=== PATIENT | male | born 1985 | race Hispanic/Latino ===

== ENCOUNTER → 2023-09-28 15:32 | Outpatient (CLI) | payer OTHER, MEDICAID, SELFPAY ==
--- NOTE | 2023-09-28 15:36 | DI.RAD.S_ITS ---
PROCEDURE: XR KNEE RT 3V INDICATIONS: right knee pain after fall TECHNIQUE: 3 views of the knee were acquired. COMPARISON: [facility], CR, XR ELBOW RT MIN 3V, 09/28/2023, 15:36. FINDINGS: Bones: No fractures or dislocations. No suspicious bony lesions. Soft tissues: No joint effusion. No suspicious soft tissue calcifications. IMPRESSION: No acute bony abnormality or significant effusion. Dictated by: Asa Allen M.D. on 09/28/2023 at 15:11 Approved by: Asa Allen M.D. on 09/28/2023 at 15:12
--- NOTE | 2023-09-28 15:36 | DI.RAD.S_ITS ---
PROCEDURE: XR ELBOW RT MIN 3V INDICATIONS: right elbow pain after fall, dislocation TECHNIQUE: 3 views of the elbow were acquired. COMPARISON: [facility], CR, XR KNEE RT 3V, 09/28/2023, 15:36. FINDINGS: Bones: No fractures or dislocations. No suspicious bony lesions. There is a fragmented enthesophyte along the posterior aspect of the olecranon. Soft tissues: Soft tissue swelling is seen. No significant elbow joint effusion. No suspicious soft tissue calcifications. IMPRESSION: No acute bony abnormality is seen. Soft tissue swelling is seen, without a significant elbow joint effusion. A fragmented enthesophyte is seen along the posterior aspect of the olecranon. Dictated by: Asa Allen M.D. on 09/28/2023 at 15:12 Approved by: Asa Allen M.D. on 09/28/2023 at 15:13
== END ==
LOC: RAD 15:35
PROVIDERS: Family Provider Specialist; PCP Student in an Organized Health Care Education/Training Program; Referring Provider Physician Assistant; Visit Provider Physician Assistant
DX: M25.521 Pain in right elbow (principal); M79.89 Other specified soft tissue disorders; M25.561 Pain in right knee
CPT/HCPCS: 73080; 73562

== ENCOUNTER → 2023-10-15 07:38 | Outpatient (CLI) | payer OTHER, MEDICAID, SELFPAY ==
--- NOTE | 2023-10-15 07:40 | DI.MRI.S_ITS ---
PROCEDURE: MR KNEE RT WO CON INDICATIONS: LCL TEAR TECHNIQUE: Noncontrast sagittal PD fast spin echo and T2 fast spin echo with fat saturation, sagittal 3-D FLASH with fat saturation; coronal T1 spin echo and PD fast spin echo with fat saturation, and axial PD fast spin echo with fat saturation through the knee. COMPARISON: [facility], CR, XR KNEE RT 3V, 09/28/2023, 15:36. FINDINGS: Image quality: Diagnostic Menisci: Medial: Minimal internal signal abnormality without discrete tear Lateral: Intact. Meniscopopliteal fascicles maintained. Cruciate ligaments: Intact Medial structures: MCL: Intact Pes anserine tendons: Intact Semimembranosus: Is mild insertional tendinopathy Lateral structures: LCL: Intact Biceps femoris: Intact IT band: Intact Popliteus tendon: Intact Anterior structures: Extensor mechanism: Intact Fat pads: No significant edema Hoffa's fat pad. There is mild prepatellar edema. Medial retinaculum: Intact. Trochlea: Unremarkable morphology. Bone and joint: Bones: No acute fracture or dislocation. Minimal medial patellar edema. Cartilage: Mild heterogeneity of the cartilage without full-thickness defect or subchondral edema. Mild osteophytic lipping at the patella and tibial spines, likely very early osteoarthrosis. Joint space: Physiologic fluid. No measureable loose body. Craft's cyst: Tiny Craft's cyst. Soft tissues: No significant vascular or other soft tissue pathology. IMPRESSION: Mild edema in the prepatellar soft tissues and medial patella, possibly contusions. No displaced fracture or dislocation. The cruciate and collateral ligaments are intact. No discrete meniscal tear. Dictated by: Troy Lopez M.D. on 10/15/2023 at 9:55 Approved by: Troy Lopez M.D. on 10/15/2023 at 10:00
== END ==
LOC: MRI 07:39
PROVIDERS: Family Provider Specialist; PCP Student in an Organized Health Care Education/Training Program; Referring Provider Physician Assistant; Visit Provider Physician Assistant
DX: M23.8X1 Other internal derangements of right knee (principal); R60.0 Localized edema
CPT/HCPCS: 73721

== ENCOUNTER → 2024-08-13 07:51 | Outpatient (CLI) | payer OTHER, SELFPAY ==
[2024-08-13 08:25] LABS: Add Manual Diff / Slide Review NO; Basophils Absolute Auto 0 /uL (0-100); Basophils Percent Auto 0.5 % (0-2); Eosinophils Absolute Auto 100 /uL (0-450); Eosinophils Percent Auto 1.5 % (2-4); Hematocrit 48.9 % (41-53); Hemoglobin 17.1 g/dL (13.5-17.5); Lymphocytes Absolute Auto 2200 /uL (1100-4500); Lymphocytes Percent Auto 35.3 % (25-40); Mean Corpuscular Hemoglobin 30.3 PG (26-34); Mean Corpuscular Volume 86.5 fL (80-100); Monocytes Absolute Auto 600 /uL (0-900); Monocytes Percent Auto 9.4 % (3-14); Neutrophils Absolute Auto 3400 /uL (1500-7000); Neutrophils Percent Auto 53.3 % (50-75); Platelet Count 172 X10^3/uL (150-400); Red Blood Cell Count 5.66 X10^6/uL (4.5-5.9); Red Cell Distribution Width 12.9 % (11.6-14.8); White Blood Cell Count 6.3 X10^3/uL (4.5-11.0)
[2024-08-13 08:42] LABS: Hemoglobin A1C% w Est Avg Glu 12.2 % (4.0-6.0)
[2024-08-13 08:57] LABS: Cholesterol 163 mg/dL (140-199); HDL Cholesterol 33 mg/dL (40-60); LDL Cholesterol Calculated 51 mg/dL (<100); Triglycerides 393 mg/dL (35-150)
[2024-08-13 09:27] LABS: TSH w/ Reflex to FT4 0.63 uIU/mL (0.47-4.68)
[2024-08-13 09:29] LABS: Testosterone 299 ng/dL (132-813)
[2024-08-16 09:57] LABS: Alanine Aminotransferase 86 IU/L (<50); Albumin 4.2 g/dL (3.5-5.0); Albumin Globulin Ratio 1.4 (1.0-2.8); Alkaline Phosphatase 111 U/L (38-126); Aspartate Aminotransferase 54 IU/L (17-59); BUN Creatinine Ratio 21.3 (6-22); Bilirubin Total 0.7 mg/dL (0.2-1.3); Blood Urea Nitrogen 17 mg/dL (9-20); Calcium 9.3 mg/dL (8.4-10.2); Carbon Dioxide 23 mmol/L (22-32); Chloride 100 mmol/L (98-107); Estimated Glomerular Filt Rate > 60 mL/min (>60); Globulin 2.9 g/dL (1.7-4.1); Glucose 407 mg/dL (70-100); HEMOLYSIS < 15 (0-50); Potassium 4.6 mmol/L (3.4-5.1); Sodium 134 mmol/L (137-145); Total Protein 7.1 g/dL (6.3-8.2)
[2024-08-16 16:18] LABS: HIV 1 & 2 Ab/Ag 4th Gen Combo NEGATIVE (NEGATIVE); Hep C Virus Ab w/Reflex Quant NEGATIVE s/c (NEGATIVE)
== END ==
PROVIDERS: Family Provider Specialist; PCP Family Medicine; Referring Provider Family Medicine; Visit Provider Family Medicine
DX: R53.82 Chronic fatigue, unspecified (principal); R63.4 Abnormal weight loss; G47.33 Obstructive sleep apnea (adult) (pediatric)
CPT/HCPCS: 36415; 80053; 80061; 83036; 84403; 84443; 85025; 86803; 87389

== ENCOUNTER → 2024-10-15 09:46 | Outpatient (CLI) | payer OTHER, SELFPAY ==
--- NOTE | 2024-10-15 10:02 | DIAB.MNT ---
Initial Diabetes Medical Nutrition Therapy Assessment Name: Homero Moore Date: 10/15/24 Time: 10-11a Dx: Type II Diabetes Provider: Jenny Preferred Learning Style: Hands on/doing Has not started Metformin. States her grandmother had some health issues with taking Metformin per report. Taking a more natural option, cinnamon, and a few other components that he is not sure of. Feels this is helping him. When taking supplement with food he notices he does not crash-- no energy. No BG checks. States his grandmother had poor rxn after years of taking Metformin, attributes fluid retention issues to med, which is not generally a SE of Metformin. Intermittent fasting. Last eye exam x 2 years ago. Symptoms of Dm includes excessive urination and thirst. Is limiting water intake before bed, which helps with evening urination, down to 1-2 x per night. drinks 2-3 gallons of water per day -105# over 2 years, unintentional. Stopped drinking sodas, gatorades and energy at that time too. Now has occasional soda. Diet Recall: 530a: eggs, valderrama, toast x 3, water, +/- coffee 6-7p: burger and milkshake OR 1c potatoes, steak and veg OR 2-3c pasta with meat and +/- veg OR tacos x 3-4 + beans and rice 2-3 gallons of water Sometimes soda or gatorade has questions regarding mostly nutrition and whether he actually has DM. Father diagnosed in his 40s and now on insulin therapy. 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 Average 3-5 mi per day walking per report. Self-Monitoring Blood Glucose: None Diabetes Medications: Metformin 1000mg BID-- not taking Pertinent Labs: HgA1c: 12.2% 08/2024 Glucose 407 TG 393 cholesterol 163 LDL 51 HDL 33 ALT 86 H AST 54 Past Medical History: (Last Updated 09/17/24 @ 08:21 by Tia Alvarado DO) Hearing loss Kidney stones Mixed hyperlipidemia Obstructive sleep apnea of adult Ruptured tympanic membrane Type 2 diabetes mellitus without complication, with no history of insulin use Nutrition Rx: Carbohydrates: Meal:45g Snack:15-30g Nutrition Diagnosis: - Excessive CHO intake r/t nutrition knowledge deficit and new dx DM aeb pt report and hgA1c 12.2% - Self monitoring deficit r/t no meter or supplies aeb pt report Intervention: This participant was very receptive. Provided appropriate educational handouts. Discussed the following topics: Completed intake assessment. Discussed barriers to care. Pathophysiology of T2DM HgA1c, its correlation to blood glucose numbers, and rationale for goal Importance of self-monitoring, how often, and when to check. Suggested checking at different times to evaluate meals Plate Method, impact of macronutrients on blood sugar, meal timing, carbohydrate counting, pairing macronutrients and spreading out carbohydrates for better blood glucose management Recommended servings for carbohydrates at meals and snacks Heart health nutrition Brainstormed appropriate meal ideas based on food preferences Role of physical activity and guidelines for exercise with hyperglycemia Medication management: safety, titration and action of Metformin Discouraged supplement intake for DM management over DM meds Created SMART goals for patient self-care and success. 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
== END ==
PROVIDERS: Family Provider Specialist; PCP Family Medicine; Referring Provider Family Medicine
DX: E11.9 Type 2 diabetes mellitus without complications (principal); E78.2 Mixed hyperlipidemia; Z71.3 Dietary counseling and surveillance
CPT/HCPCS: 97802

== ENCOUNTER → 2024-11-12 14:54 | Outpatient (CLI) | payer OTHER, SELFPAY ==
--- NOTE | 2024-11-12 15:03 | DIAB.MNTFU ---
Follow-up Diabetes Medical Nutrition Therapy Assessment Name: Homero Moore Date: 11/12/24 Time: 3-4 Dx: Type II Diabetes Provider: Jenny Valentin presents for follow-up DM visit. Reports FBG is sometimes higher after larger dinner portions. Cut out all sugar beverages. Less overnight urination since last visit, now 0-1x per night. has not started Metformin, is weary about medications. Taking a supplement instead. 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 Diet Recall: 530a: eggs, valderrama, toast x 1 large, water, +/- coffee OR 1 pancake with eggs, 2 TBS syrup 12-2p: nothing or [place] bar or jerky or peanuts 6-7p: burger OR 1 flour tortilla, 1/2c beans, 1.5c rice OR steak, salad, potatoes Last eye exam x 2 years ago. Father diagnosed in his 40s and now on insulin therapy. Due in November for PCP visit and HgA1c. None scheduled yet. 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 Average 3-5 mi per day walking per report. Self-Monitoring Blood Glucose: Started checking FBG. All elevated at this time. Date Pre Post Pre Post Pre Post notes 11/06 249 11/07 206 11/08 252 11/09 271 11/10 241 11/11 213 11/12 197 Diabetes Medications: Metformin 1000mg BID-- not taking Pertinent Labs: HgA1c: 12.2% 08/2024 Glucose 407 TG 393 cholesterol 163 LDL 51 HDL 33 ALT 86 H AST 54 Past Medical History: (Last Updated 09/17/24 @ 08:21 by Tia Alvarado DO) Hearing loss Kidney stones Mixed hyperlipidemia Obstructive sleep apnea of adult Ruptured tympanic membrane Type 2 diabetes mellitus without complication, with no history of insulin use Nutrition Rx: Carbohydrates: Meal:45g Snack:15-30g Nutrition Diagnosis: - Excessive CHO intake r/t nutrition knowledge deficit and new dx DM aeb pt report and hgA1c 12.2%- in progress - Self monitoring deficit r/t no meter or supplies aeb pt report - improved Intervention: This participant was very receptive. Provided appropriate educational handouts. Discussed the following topics: Metformin safety, ways to minimize side effects, importance of starting a DM medication given hga1c and recent BG Nutrition recommendations, spreading out CHO, carb portions for meals/snacks, created meal plan based on food preferences, meal timing and pairing of macronutrients BG review and goals physical activity Created SMART goals for patient self-care and success. 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
== END ==
PROVIDERS: Family Provider Specialist; PCP Family Medicine; Referring Provider Family Medicine
DX: E11.9 Type 2 diabetes mellitus without complications (principal); E78.2 Mixed hyperlipidemia; Z71.3 Dietary counseling and surveillance; Z83.3 Family history of diabetes mellitus
CPT/HCPCS: 97803

== ENCOUNTER → 2024-12-03 08:09 | Outpatient (CLI) | payer OTHER, SELFPAY ==
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
== END ==
PROVIDERS: Family Provider Specialist; PCP Family Medicine; Referring Provider Family Medicine
DX: E11.9 Type 2 diabetes mellitus without complications (principal); R19.7 Diarrhea, unspecified; E78.2 Mixed hyperlipidemia; Z71.3 Dietary counseling and surveillance
CPT/HCPCS: 97803

== ENCOUNTER → 2025-02-04 08:39 | Outpatient (CLI) | payer OTHER, SELFPAY ==
--- NOTE | 2025-02-04 08:50 | DIAB.FU ---
Follow-up Diabetes Education Assessment Name: Homero Moore Date: 02/04/25 Time: 90a Dx: Type II Diabetes Provider: Jenny Valentin presents for follow-up DM visit. Reports busy with work and not been able to schedule with PCP yet. Plans to be less busy come March. Saw an eye doctor. 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 Completed dental visit since last visit. using a mouthwash rec by dentist but has changed taste, ie water tastes salty. Adding lemon to water to help with this. Choosing more lean meats. Asked to put less food on his plate to reduce intake. 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 using griddle and bbq to cook. More chicken than beef lately. Swedish food once per week, chicken and small portion of white rice. Working on stopping eating when full. Continues with Metformin dosing without SE. has questions about missed doses. Reports wearing slippers in home with a good sole. Diet Recall: 530a: eggs, +/- valderrama or sausage, once per week pancake 12-2p: jerky sticks OR peanuts OR protein shakes OR smoothie with fruit and tajik yogurt 6-7p: chicken, green beans or salad If eating out: salad OR 1-2 slices pizza with salad (use to eat half a pizza). Due for PCP visit and HgA1c. None scheduled yet. Physical Activity: Walks for ADL and hetal, which is physical per report. Average 3-5 mi per day walking per report. some walking with dog Self-Monitoring Blood Glucose: Checking FBG, ranging from 120-150mg/dl, none for review today. Diabetes Medications: Metformin 1000mg BID Pertinent Labs: HgA1c: 12.2% 08/2024 Glucose 407 TG 393 cholesterol 163 LDL 51 HDL 33 ALT 86 H AST 54 Past Medical History: (Last Updated 09/17/24 @ 08:21 by Tia Alvarado DO) Hearing loss Kidney stones Mixed hyperlipidemia Obstructive sleep apnea of adult Ruptured tympanic membrane Type 2 diabetes mellitus without complication, with no history of insulin use Intervention: This participant was very receptive. Provided appropriate educational handouts. Discussed the following topics: Reducing DM complications Foot care: wearing good footwear, lotion if feet are dry, checking feet daily Eye and dental visits Medication management Nutrition changes and recs Importance of new lab work and PCP visit physical activity Created SMART goals for patient self-care and success. Goals: Schedule PCP appt- continue Choose more lean meats- met Call PCP to schedule-new Follow-up: ANDREW WATKINS follow-up in 4 months. Rosalina Stafford RDN, ROLAND Certified Diabetes Care and Senior Escrow Officer P: [phone] Thank you for this referral
== END ==
LOC: DIET 08:39
PROVIDERS: Family Provider Specialist; PCP Family Medicine; Referring Provider Family Medicine
DX: E11.9 Type 2 diabetes mellitus without complications (principal); Z79.84 Long term (current) use of oral hypoglycemic drugs; Z71.3 Dietary counseling and surveillance
CPT/HCPCS: G0108